=== PATIENT | female | born 1995 | race Caucasian/White ===

== ENCOUNTER 2019-11-29 15:06 | Emergency (ER) | payer BC, SELFPAY ==
--- NOTE | 2019-11-29 16:52 | EDPHYS ---
Physician Documentation [facility] Name: Cristin Vazquez Age: 24 yrs Sex: Female : 1995 Arrival Date: 11/29/2019 Time: 15:07 Bed 20 Private MD: ED Physician Evan Ball HPI: 11/29 16:49 This 24 yrs old Female presents to ER via Ambulatory with complaints of [place] Palpitations, Anxiety. 16:49 The patient presents with a history of heart racing. Context: The symptoms occur with [facility] anxiety. Onset: The symptoms/episode began/occurred just prior to arrival. Duration: The patient or guardian reports a single episode, that is now resolved. Modifying factors: The symptoms are aggravated by nothing. The symptoms are alleviated by remaining still, rest. Associated signs and symptoms: The patient has no apparent associated signs or symptoms. Severity of symptoms: At their worst the symptoms were moderate in the emergency department the symptoms have improved mildly. The patient has experienced similar episodes in the past, several times. 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 - Social history:: Smoking status: Patient/guardian denies using tobacco. - Ebola Screening: : No symptoms or risks identified at this time. - Family history:: not pertinent. ROS: 16:49 Constitutional: Negative for fever, chills, and weight loss, Eyes: Negative for injury, trent[place] pain, redness, and discharge, ENT: Negative for injury, pain, and discharge, Neck: Negative for injury, pain, and swelling, Respiratory: Negative for shortness of breath, cough, wheezing, and pleuritic chest pain, Abdomen/GI: Negative for abdominal pain, nausea, vomiting, diarrhea, and constipation, Back: Negative for injury and pain, : Negative for injury, bleeding, discharge, and swelling, MS/Extremity: Negative for injury and deformity, Skin: Negative for injury, rash, and discoloration, Neuro: Negative for headache, weakness, numbness, tingling, and seizure, Psych: Negative for depression, anxiety, suicide ideation, homicidal ideation, and hallucinations, Allergy/Immunology: Negative for hives, rash, and allergies, Endocrine: Negative for neck swelling, polydipsia, polyuria, polyphagia, and marked weight changes. 16:49 Cardiovascular: Positive for palpitations. Exam: 16:49 Constitutional: This is a well developed, well nourished patient who is awake, alert, t[place] and in no acute distress. Head/Face: Normocephalic, atraumatic. Eyes: Pupils equal round and reactive to light, extra-ocular motions intact. Lids and lashes normal. Conjunctiva and sclera are non-icteric and not injected. Cornea within normal limits. Periorbital areas with no swelling, redness, or edema. ENT: Nares patent. No nasal discharge, no septal abnormalities noted. Tympanic membranes are normal and external auditory canals are clear. Oropharynx with no redness, swelling, or masses, exudates, or evidence of obstruction, uvula midline. Mucous membranes moist. Neck: Trachea midline, no thyromegaly or masses palpated, and no cervical lymphadenopathy. Supple, full range of motion without nuchal rigidity, or vertebral point tenderness. No Meningismus. Chest/axilla: Normal chest wall appearance and motion. Nontender with no deformity. No lesions are appreciated. Cardiovascular: Regular rate and rhythm with a normal S1 and S2. No gallops, murmurs, or rubs. Normal PMI, no JVD. No pulse deficits. Respiratory: Lungs have equal breath sounds bilaterally, clear to auscultation and percussion. No rales, rhonchi or wheezes noted. No increased work of breathing, no retractions or nasal flaring. Abdomen/GI: Soft, non-tender, with normal bowel sounds. No distension or tympany. No guarding or rebound. No evidence of tenderness throughout. Back: No spinal tenderness. No costovertebral tenderness. Full range of motion. Skin: Warm, dry with normal turgor. Normal color with no rashes, no lesions, and no evidence of cellulitis. MS/ Extremity: Pulses equal, no cyanosis. Neurovascular intact. Full, normal range of motion. Neuro: Awake and alert, GCS 15, oriented to person, place, time, and situation. Cranial nerves II-XII grossly intact. Motor strength 5/5 in all extremities. Sensory grossly intact. Cerebellar exam normal. Normal gait. Psych: Awake, alert, with orientation to person, place and time. Behavior, mood, and affect are within normal limits. 16:49 Musculoskeletal/extremity: Extremities: all appear grossly normal, with no appreciated pain with palpation, ROM: no acute changes, Circulation is intact in all extremities. Sensation intact. Compartment Syndrome exam of affected extremity: is normal. Joints: All joints appear normal with full range of motion. Weight bearing: able to fully bear weight, DVT Exam: No signs of deep vein thrombosis. no pain, no swelling, no tenderness, negative Homans' sign noted on exam, no appreciated bluish discoloration, no erythema, no increased warmth. Vital Signs: 15:16 BP 135 / 85; Pulse 79; Resp 16; Temp 97.1; Pulse Ox 100% on R/A; Weight 79.38 kg; hb Height 5 ft. 8 in. (172.72 cm); Pain 0/10; 16:45 BP 122 / 78; Pulse 77; Resp 18; Temp 97.4; Pulse Ox 99% on R/A; ph 15:16 Body Mass Index 26.61 (79.38 kg, 172.72 cm) hb MDM: 15:53 Patient medically screened. [facility] 16:51 Data reviewed: vital signs, nurses notes, EKG. [facility] 11/29 16:01 Order name: EKG Electrocardiogram EDMS Administered Medications: No medications were administered Disposition: 11/29/19 16:52 Discharged to Home. Impression: Palpitations, Anxiety disorder, unspecified, Tobacco use. - Condition is Stable. - Discharge Instructions: Panic Attacks, Palpitations, Steps to Quit Smoking, Smoking Hazards, Panic Attacks, [id number], Palpitations, [id number]. - Work release form, Medication Reconciliation Form, Thank You Letter, Antibiotic Education, Prescription Opioid Use form. - Follow up: Private Physician; When: 2 - 3 days; Reason: Recheck today's complaints, Continuance of care, Re-evaluation by your physician. - Problem is new. - Symptoms have improved. Signatures: Dispatcher [employer] EDMS Evan Ball MD MD cha Hall, Patricia, RN RN Leticia Alvarado RN RN Corrections: (The following items were deleted from the chart) 17:00 16:52 11/29/2019 16:52 Discharged to Home. Impression: Palpitations; Anxiety disorder, ph unspecified; Tobacco use. Condition is Stable. Forms are Medication Reconciliation Form, Thank You Letter, Antibiotic Education, Prescription Opioid Use. Follow up: Private Physician; When: 2 - 3 days; Reason: Recheck today's complaints, Continuance of care, Re-evaluation by your physician. Problem is new. Symptoms have improved. [place]
--- NOTE | 2019-11-29 16:52 | ER ---
Nurse's Notes [facility] Name: Cristin Vazquez Age: 24 yrs Sex: Female : 1995 Arrival Date: 11/29/2019 Time: 15:07 Bed 20 Private MD: Diagnosis: Palpitations;Anxiety disorder, unspecified;Tobacco use Presentation: 11/29 15:14 Presenting complaint: Patient states: "I think I am having a panic attack, my heart hb feels fluttery and I was tingling all over." Pt reports smoking THC vape at lunch. Transition of care: patient was not received from another setting of care. Onset of symptoms was November 29, 2019. Risk Assessment: Do you want to hurt yourself or someone else? Patient reports no desire to harm self or others. Initial Sepsis Screen: Does the patient meet any 2 criteria? No. Patient's initial sepsis screen is negative. Does the patient have a suspected source of infection? No. Patient's initial sepsis screen is negative. Care prior to arrival: None. 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 - Social history:: Smoking status: Patient/guardian denies using tobacco. - Ebola Screening: : No symptoms or risks identified at this time. - Family history:: not pertinent. Screenin:30 Abuse screen: Denies threats or abuse. Denies injuries from another. Nutritional ph screening: No deficits noted. Tuberculosis screening: No symptoms or risk factors identified. Fall Risk None identified. Assessment: 16:15 General: Appears in no apparent distress. comfortable, well groomed, Behavior is ph cooperative, appropriate for age, anxious. Pain: Denies pain. Neuro: Level of Consciousness is awake, alert, obeys commands, Oriented to person, place, time, situation. Cardiovascular: Capillary refill < 3 seconds in bilateral fingers Patient's skin is warm and dry. Respiratory: Airway is patent Respiratory effort is even, unlabored. Derm: Skin is intact, Skin is pink, warm \\T\\ dry. Vital Signs: 15:16 BP 135 / 85; Pulse 79; Resp 16; Temp 97.1; Pulse Ox 100% on R/A; Weight 79.38 kg; hb Height 5 ft. 8 in. (172.72 cm); Pain 0/10; 16:45 BP 122 / 78; Pulse 77; Resp 18; Temp 97.4; Pulse Ox 99% on R/A; ph 15:16 Body Mass Index 26.61 (79.38 kg, 172.72 cm) hb ED Course: 15:07 Patient arrived in ED. as 15:15 Triage completed. hb 15:16 Arm band placed on. 15:53 Evan Ball MD is Attending Physician. [facility] 16:04 Anika Turner, RN is Primary Nurse. ph 16:15 Patient has correct armband on for positive identification. Bed in low position. Call ph light in reach. Side rails up X 1. 17:00 No provider procedures requiring assistance completed. Patient did not have IV access ph during this emergency room visit. Administered Medications: No medications were administered Outcome: 16:52 Discharge ordered by . [facility] 17:00 Patient left the ED. ph 17:00 Discharged to home ambulatory, with family. ph 17:00 Condition: good 17:00 Discharge instructions given to patient, Instructed on discharge instructions, follow up and referral plans. Demonstrated understanding of instructions, follow-up care. Signatures: Evan Ball MD MD cha Martinez, Amelia as Anika Turner, CHANDLER RN Leticia Alvarado RN RN Corrections: (The following items were deleted from the chart) 15:19 15:14 Presenting complaint: Patient states: "I think I am having a panic attack, my hb heart feels fluttery and I was tingling all over."
[2019-11-29 17:21] VITALS: BP 135/85; TEMP 97.1; O2SAT 100
--- NOTE | 2019-11-29 20:53 | EKG ---
Test Date: 2019-11-29 Test Time: 15:28:34 Offensive Coordinator: MOI MEASUREMENT RESULTS: Intervals: Rate: 78 NJ: 156 QRSD: 76 QT: 400 QTc: 456 May: P: 71 NJ: 156 QRS: 69 T: 60 INTERPRETIVE STATEMENTS: Normal sinus rhythm with sinus arrhythmia Cannot rule out Anterior infarct, age undetermined Abnormal ECG No previous ECG available for comparison Electronically Signed On 11-29-19 20:52:51 SEWING TRIMMER by Jose R Vilchis
== END 2019-11-29 17:00 | disposition home or self-care (01) ==
LOC: EDBD 15:06 → ER 15:06
DX: F41.9 Anxiety disorder, unspecified (principal)
CPT/HCPCS: 93005; 99281